=== PATIENT | female | born 1965 | race Caucasian/White ===

== ENCOUNTER 2022-10-01 13:10 | Emergency (ER) | payer OTHER ==
[2022-10-01] VITALS (10 sets, daily range): BP systolic 111–153; BP diastolic 60–77
[~2022-10-01] VITALS: Ht 157.5 cm; Wt 83.0 kg
[2022-10-01] MEDS ORDERED: DILTIAZEM HYDR180 MG (13:46)
[2022-10-01] MEDS ORDERED: LOPRESSOR25 M1 PO (13:47)
[2022-10-01] MEDS ORDERED: LEXAPRO5 MG PO (13:49)
[2022-10-01] MEDS ORDERED: ALPRAZOLAM0.5 M2 PO (13:50)
[2022-10-01] MEDS ORDERED: WARFARIN PO (13:51)
[2022-10-01] MEDS ORDERED: ASPIRIN 81 LOW81 MG (13:52)
[2022-10-01 14:17] LABS: BASO% 0.7 % (0-3); HEMATOCRIT 46.4 % (37.0-47.0); HEMOGLOBIN 14.9 g/dl (12.0-16.0); IMMATURE GRANULOCYTES 0.2 % (0.0-5.0); LYMPH% 27.6 % (15-41); MEAN CELL VOLUME 100.2 fL CALC (80.0-100.0); MEAN CORPUSCULAR HGB 32.2 pG CALC (26.0-32.0); MEAN CORPUSCULAR HGB CONC 32.1 g/dL CAL (32.0-36.0); MONO% 9.3 % (2-13); NEUT# 3.58 thou/uL (2.00-7.15); NEUT% 60.2 % (42-76); RED BLOOD COUNT 4.63 mill/uL (4.20-5.60); RED CELL DISTRI WIDTH 13.7 % (11.5-15.5)
[2022-10-01 14:26] LABS: ALBUMIN 4.4 g/dL (3.2-5.0); ALKALINE PHOSPHATASE 75 u/l (38-126); ANION GAP 12 (6-22 (CALC)); BILIRUBIN, TOTAL 1.1 mg/dL (0.02-1.3); BUN 11 mg/dL (7-17); BUN/CREATININE RATIO 18 (12-20 (CALC)); CARBON DIOXIDE 25 mmol/l (22-30); CHLORIDE 108 mmol/l (95-108); CREATININE 0.6 mg/dL (0.5-1.0); GFR FOR AFR.AMER. > 60 ML/MIN (>=60 (CALC)); GFR OTHER RACES > 60 ML/MIN (>=60 (CALC)); INTERNATIONAL NORMALIZED RATIO 1.1 RATIO (0.7-1.3); MAGNESIUM 1.6 mg/dL (1.6-2.3); POTASSIUM 4.3 mmol/l (3.5-5.1); PROTHROMBIN TIME 10.5 SECONDS (9.0-12.5); SGOT/AST 63 u/l (14-36); SODIUM 141 mmol/l (137-146)
[2022-10-01 15:17] LABS: URINE BILIRUBIN - DIPSTICK NEGATIVE (NEGATIVE); URINE BLOOD DIPSTICK TRACE-INTACT (NEGATIVE); URINE COLOR YELLOW; URINE GLUCOSE - DIPSTICK NEGATIVE (NEGATIVE); URINE KETONE NEGATIVE (NEGATIVE); URINE PH 7.5 (4.5-8.0); URINE PROTEIN - DIPSTICK TRACE mg/dL (NEG-TRACE); URINE UROBILINOGEN - DIPSTICK 0.2 E.U./dL (0.2)
[2022-10-01 15:20] LABS: URINE LEUK ESTERASE SMALL (NEGATIVE); URINE NITRITE - DIPSTICK NEGATIVE (Negative)
[2022-10-01] MEDS ORDERED: DILTIAZEM HYDR180 MG PO (15:24)
[2022-10-01] MEDS ORDERED: METOPROL TAR100 MG PO (15:24)
[2022-10-01 15:27] LABS: URINE SQUAMOUS EPITHELIAL CELL FEW EPI/hpf (0-FEW); URINE WBC 20-50 WBC/hpf (0-5)
== END 2022-10-01 16:29 | disposition home or self-care (01) | DRG 310 ==
LOC: ED 13:10
PROVIDERS: Nurse Practitioner
DX: I48.20 Chronic atrial fibrillation, unspecified (principal); I25.10 Atherosclerotic heart disease of native coronary artery without angina pectoris; T45.516A Underdosing of anticoagulants, initial encounter; T46.1X6A Underdosing of calcium-channel blockers, initial encounter; T44.7X6A Underdosing of beta-adrenoreceptor antagonists, initial encounter; Z91.128 Patient's intentional underdosing of medication regimen for other reason; Z95.2 Presence of prosthetic heart valve; Z95.5 Presence of coronary angioplasty implant and graft

== ENCOUNTER 2023-06-18 18:10 | Emergency (ER) | payer OTHER ==
[2023-06-18] VITALS (9 sets, daily range): BP systolic 125–166; BP diastolic 68–84
[~2023-06-18] VITALS: Ht 157.5 cm; Wt 79.0 kg
[~2023-06-18 18:10] MED LIST: ALPRAZOLAM0.5 M2 PO; ASPIRIN 81 LOW81 MG PO; DILTIAZEM HYDR180 MG; DILTIAZEM HYDR180 MG PO; HAIR/SKIN/NAILS1 CAP PO; LEXAPRO5 MG PO; LOPRESSOR25 M1 PO; METOPROL TAR100 MG PO; NEXIUM40 M1 PO; VITAMIN C500 M1 PO; WARFARIN PO; XARELTO20 MG PO
[2023-06-18] MEDS ORDERED: MORPHINE SULFATE 4 MG/ML VIAL IV ONE (20:10)
[2023-06-18] MEDS ORDERED: NEOMYCIN-BACITRACIN-POLYMYXIN 0.5 GM/PAK PAK TOP ONE (23:40)
[2023-06-18] MEDS ORDERED: MELOXICAM7.5 MG PO (23:46)
[2023-06-19 00:02] VITALS: BP 150/76
== END 2023-06-19 00:25 | disposition home or self-care (01) | DRG 999 ==
LOC: ED 18:10
PROC: 2W3DX1Z Immobilization of Left Lower Arm using Splint (ICD-10-PCS; principal; 2023-06-18)
PROC: 2W3CX1Z Immobilization of Right Lower Arm using Splint (ICD-10-PCS; 2023-06-18)
DX: S52.502A Unspecified fracture of the lower end of left radius, initial encounter for closed fracture (principal); S52.501A Unspecified fracture of the lower end of right radius, initial encounter for closed fracture; S00.81XA Abrasion of other part of head, initial encounter; F17.210 Nicotine dependence, cigarettes, uncomplicated; W17.89XA Other fall from one level to another, initial encounter; Z95.2 Presence of prosthetic heart valve; Z95.0 Presence of cardiac pacemaker; Z95.1 Presence of aortocoronary bypass graft